=== PATIENT | female | born 1935 | race Caucasian/White ===

== ENCOUNTER 2019-02-19 18:01 | Inpatient (IN) | payer OTHER, MEDICARE ==
--- NOTE | 2019-02-19 18:21 | PDOC ---
History of Present Illness - General Chief Complaint: Choking Sensation Stated Complaint: CHOCKING SENSATION Time Seen by Provider: 02/19/19 18:20 History Source: Patient, Family (daughter) Exam Limitations: No Limitations - History of Present Illness Initial Comments: 02/19/19 18:45 83F w/ pmh of HTN, DM, HLD, esophageal stricture presents to [facility] with complaint of sticking sensation in the neck after eating shrimp pasta and calamari at ~16:30 today. Immediately, felt a sticking sensation in her throat w /a constant spitting of saliva and shortness of breath. Recently, underwent an EGD biopsy, balloon dilation on 02/10/19(Dr Lamont Dawkins w/ [facility]) with instructions afterwards to chew her food thoroughly. In the past year, had multiple episodes of choking sensations w/ solid foods. Had a hospitalization in Jun 2018 that required EGD intervention. Denies weight loss. Associated Symptoms: reports: shortness of breath. denies: chest pain, cough, headaches, malaise, nausea/vomiting Past History - Travel Traveled outside of the country in the last 30 days: No Close contact w/someone who was outside of country & ill: No - Past Medical History Allergies/Adverse Reactions: Allergies Allergy/AdvReac Type Severity Reaction Status Date / Time No Known Allergies Allergy Verified 02/19/19 18:36 Home Medications: Ambulatory Orders Unobtainable 02/19/19 - Surgical History Abdominal Surgery: Yes (appendectomy) Orthopedic Surgery: Yes (Right shoulder, b/l knee) - Family Disease History Family Disease History: CA: Mother (pancreatic) - Suicide/Smoking/Psychosocial Hx Smoking History: Never smoked Hx Alcohol Use: Yes (social) Drug/Substance Use Hx: No Review of Systems - Review of Systems Able to Perform ROS?: Yes Is the patient limited Vincentian proficient: No Constitutional: No: Chills, Diaphoresis, Fever, Night Sweats, Weakness, Unintentional Wgt. Loss HEENTM: No: Eye Pain, Blurred Vision Respiratory: Yes: Shortness of Breath. No: Cough, Stridor, Wheezing, Productive cough Cardiac (ROS): No: Chest Pain, Irregular Heart Rate, Palpitations, Syncope ABD/GI: Yes: Vomiting (spitting up water). No: Abdominal Distended, Abd. Pain w / defecation, Constipated, Diarrhea, Nausea, Poor Appetite : No: Dysuria, Hematuria, Incontinence Musculoskeletal: No: Symptoms Reported Neurological: No: Headache, Numbness, Tremors *Physical Exam - Vital Signs Last Vital Signs Temp Pulse Resp BP Pulse Ox 98.0 F 81 18 164/67 98 02/19/19 18:17 02/19/19 18:17 02/19/19 18:17 02/19/19 18:17 02/19/19 18:17 - Physical Exam General Appearance: Yes: Mild Distress (improved after glucagon), Obese HEENT: positive: Other (actively spitting saliva). negative: Pale Conjunctivae , Scleral Icterus (R), Scleral Icterus (L) Neck: negative: Tender, Trachea midline, Lymphadenopathy (R), Lymphadenopathy (L ) Respiratory/Chest: positive: Lungs Clear, Normal Breath Sounds. negative: Respiratory Distress, Crackles, Rales, Stridor, Wheezing Cardiovascular: positive: Regular Rhythm, Regular Rate, S1, S2 Gastrointestinal/Abdominal: positive: Soft. negative: Guarding, Rebound, Tenderness, Hernia Extremity: negative: Coldness, Cyanosis Integumentary: positive: Dry, Warm Neurologic: positive: Alert. negative: Confused ED Treatment Course - LABORATORY CBC & Chemistry Diagram: 02/19/19 18:45 02/19/19 18:45 Medical Decision Making - Medical Decision Making 02/19/19 19:15 - fu CBC, CMP - fu EKG - administer Glucagon 1mg IV -- reassess at ~19:30 02/19/19 20:48 - administer Glucagon 2mg IV - GI consult(Dr Downs) -- recommended NPO, EGD tonight *DC/Admit/Observation/Transfer Diagnosis at time of Disposition: Esophageal foreign body Qualifiers: Encounter type: initial encounter Qualified Code(s): T18.108A - Unspecified foreign body in esophagus causing other injury, initial encounter - Discharge Dispostion Condition at time of disposition: Stable Decision to Admit order: Yes - Referrals - Patient Instructions - Post Discharge Activity
[2019-02-19] MEDS ORDERED: GLUCAGON 1 MG KIT IVPUSH ONE ×3 (18:42→19:47)
[2019-02-19] MEDS ORDERED: GlUCAGON HUMAN RECOMBINANT 1 MG/VIAL ONE ×2 (18:59→20:39)
--- NOTE | 2019-02-19 19:12 | PDOC ---
Documentation entered by Xochitl Salinas SCRIBE, acting as scribe for Chicho Ring MD. Chicho Ring MD: This documentation has been prepared by the Brad dow Sammi, SCRIBE, under my direction and personally reviewed by me in its entirety. I confirm that the documentation accurately reflects all work, treatment, procedures, and medical decision making performed by me. Attending Attestation - Resident Resident Name: Tyrone Gatica - ED Attending Attestation I have performed the following: I have examined & evaluated the patient, The case was reviewed & discussed with the resident, I agree w/resident's findings & plan, Exceptions are as noted - HPI HPI: 02/19/19 19:06 The patient is an 83 year old female, with a significant PMH of acid reflux, DM , HTN, HLD, recent esophageal balloon dilation ~ 2 weeks ago, who presents for evaluation of inability to tolerate PO since about 4:30pm. The patient states she was eating bread and calamari and soon after had the sensation of food stuck in her throat with associated SOB and increased saliva production. Denies chest pain. She denies any symptoms prior to her meal. Daughter at bedside notes the patient experienced a similar episode back in June which required an endoscopy. The patient was then advised to receive esophageal balloon treatments for a stricter. PCP: Mayela Abrams GI: [facility] - Physicial Exam PE: 02/19/19 19:12 GENERAL: The patient is awake, alert, and fully oriented, Nontoxic - in no acute distress. HEAD: Normocephalic, atraumatic. EYES: extraocular movements intact, sclera anicteric, conjunctiva clear. ENT: Normal voice, Moist mucous membranes. occasional spitting up saliva NECK: Normal range of motion, supple, LUNGS: Breath sounds equal, clear to auscultation bilaterally. No wheezes, no rhonchi, no rales. HEART: Regular rate and rhythm, normal S1 and S2 without murmur, rub or gallop. ABDOMEN: Soft, nontender, No guarding, no rebound. NEUROLOGICAL: No facial assymetry, Normal speech, PSYCH: Normal mood, normal affect. SKIN: Warm, Dry, normal turgor, - Medical Decision Making 02/19/19 18:37 83y F hx of dm, htn, hl, hx of esohageal balloon dilation sp biopsy presenst with inability to tolerate PO intake/secretions. Pt was eating dinner and felt somtehing sticking in her throat after swallowing a peice of calamari. Pt unable to tolerate any oral intake since then and has been spitting silava. pt was rosmery kern prior to eating. will start gluocagon if does not work will dw GI 02/19/19 20:51 no significan timproovement with glucogon will admit for endoscopy case dw dr. miller, GI Heart Score/ECG Review - ECG Impressions Comment:: 02/19/19 19:14 Twelve-lead EKG was performed and reviewed by me. There is normal sinus rhythm with a normal rate. rate of 86 The axis is normal. The intervals are normal. There is normal R wave progression There are no ST or T wave abnormalities.
[2019-02-19 19:14] LABS: BASO % 0.9 % (0-2.0); EOS % 1.7 % (0-4.5); HEMATOCRIT 38.2 % (32.4-45.2); HEMOGLOBIN 12.7 GM/dL (10.7-15.3); LYMPH % 13.8 % (8-40); MCH 30.3 pg (25.7-33.7); MCHC 33.1 g/dl (32.0-36.0); MEAN CELL VOLUME 91.3 fl (80-96); MEAN PLT VOLUME 9.5 fl (7.5-11.1); MONO % 6.8 % (3.8-10.2); NEUT % 76.8 % (42.8-82.8); PLATELET COUNT 212 K/MM3 (134-434); RBC 4.18 M/mm3 (3.60-5.2); RDW 13.7 % (11.6-15.6); WHITE BLOOD COUNT 11.2 K/mm3 (4.0-10.0)
[2019-02-19] MEDS ORDERED: ONDANSETRON 4 MG/2 ML VIAL IVPUSH ONE (19:19)
[2019-02-19 19:22] LABS: INR 0.99 (0.83-1.09); PROTHROMBIN TIME (PATIENT) 11.7 SEC (9.7-13.0)
[2019-02-19] MEDS ORDERED: ONDANSETRON 4 MG/2 ML VIAL ONE (19:22)
[2019-02-19 19:36] LABS: BILIRUBIN,TOTAL 0.5 mg/dL (0.2-1); BLOOD UREA NITROGEN 25.4 mg/dL (7-18); CALCIUM 9.4 mg/dL (8.5-10.1); CREATININE 1.1 mg/dL (0.55-1.3); POTASSIUM 4.9 mmol/L (3.5-5.1); TOT PROT 7.3 g/dl (6.4-8.2)
[2019-02-19] MEDS ORDERED: SODIUM CHLORIDE 0.9% 500 ML INFUS.BAG IV ONE (20:52)
[2019-02-19] MEDS ORDERED: ONDANSETRON 4 MG/2 ML VIAL IVPUSH PRN (22:56)
[2019-02-19] MEDS ORDERED: PROMETHAZINE HCL 25 MG/1 ML VIAL IVPUSH PRN (22:56)
[2019-02-19] MEDS ORDERED: LACTATED RINGERS SOLUTION 1,000 ML IV SCH (23:00)
--- NOTE | 2019-02-19 23:03 | PN ---
Teaching Attending Note Name of Resident: Ilda Ramírez ATTENDING PHYSICIAN STATEMENT I saw and evaluated the patient. I reviewed the resident's note and discussed the case with the resident. I agree with the resident's findings and plan as documented. SUBJECTIVE: Patient is an 83 year old woman with PMH of HTN, NIDDM, HLD and Esophageal stricture who presents to the ER with complaint of sticking sensation in the neck after eating shrimp pasta and calamari at about 16:30 today. Immediately felt a sticking sensation in her throat with associated constant spitting of saliva and shortness of breath. Recently, underwent an EGD biopsy, balloon dilation on 02/10/19 (Dr Lamont Dawkins at [facility]) with instructions afterwards to chew her food thoroughly. In the past year, had multiple episodes of choking sensations with solid food. Had a hospitalization in Jun 2018 that required EGD intervention. Denies recent weight loss, chest pain, cough, headaches, malaise, nausea or vomiting. OBJECTIVE: Alert Vital Signs Period Temp Pulse Resp BP Sys/Sal Pulse Ox Last 24 Hr 98.0 F-98.2 F 68-81 18-19 156-164/64-67 98-99 HEENT: No Jaundice, eye redness or discharge, PERRLA, EOMI. Normocephalic, atraumatic. External ears are normal and hearing is grossly intact. No nasal discharge. Neck: Supple, nontender. No palpable adenopathy or thyromegaly. No JVD Chest: Good effort. Clear to auscultation and percussion. Heart: Regular. No S3, rub or murmur Abdomen: Not distended, soft, nontender and no HSM. No rebound or guarding. Normal bowel sounds. Ext: Peripheral pulses intact. No leg edema. Skin: Warm and dry. No petechiae, rash or ecchymosis. Neuro: Alert. Oriented x3. CN 2-12 grossly intact. Sensation grossly intact in all four extremities and DTR are symmetric. Psych: Appropriate mood and affect. Good insight. Current Medications Generic Name Dose Route Start Last Admin Trade Name Freq PRN Reason Stop Dose Admin Fentanyl 50 mcg 02/19/19 22:56 Sublimaze Injection - IVPUSH [id number] PRN PAIN-PACU ORDER X 4 DOSES ONLY Lactated Ringer's 1,000 mls @ 125 mls/hr 02/19/19 23:00 Lactated Ringers Solution IV ASDIR BILL Ondansetron HCl 4 mg 02/19/19 22:56 Zofran Injection IVPUSH Q6H PRN NAUSEA AND/OR VOMITING Promethazine HCl 12.5 mg 02/19/19 22:56 Phenergan Injection - IVPUSH Q6H PRN NAUSEA-FOR RESCUE AFTER 15 MIN Home Medications Medication Instructions Recorded Unobtainable 02/19/19 Abnormal Lab Results 02/19/19 02/19/19 18:45 18:45 WBC 11.2 H Absolute Neuts (auto) 8.6 H Chloride 108 H BUN 25.4 H Random Glucose 182 H ASSESSMENT AND PLAN: 1. Esophageal food impaction - Not in acute respiratory distress. GI consulted and scheduled for EGD tonight. Got IV glucagon, zofran and IV NS in the ER. Being kept NPO. 2. Uncontrolled DM For now, we will hold the home diabetes drugs and implement sliding scale insulin regimen. Provide comprehensive diabetes care with patient teaching and counseling about the importance of adherence to prescribed diabetes regimen, euglycemia, eye care and foot care. 3. Obesity Counseled on the risks associated with obesity. Will provide patient all the necessary assistance, counseling and positive reinforcement to facilitate weight loss. Consult healthcare architect. 4. Hypertension - Restart suitable outpatient antihypertensive drugs when clinically appropriate. Revise regimen to ensure [id number] excellent BP control and industrial relations counselor patient on the injurious effects of uncontrolled hypertension. Nonpharmacologic measures to control hypertension like weight loss , salt restriction and exercise discussed. Importance of adherence to treatment regimen and attainment of normotension emphasized. 5. DVT prophylaxis - SCD, Early ambulation - Withhold heparin until after EGD. 6. Advance directives - Full code
--- NOTE | 2019-02-20 00:21 | HP ---
CHIEF COMPLAINT: difficulty swallowing PCP: Dr. Robert Abrams HISTORY OF PRESENT ILLNESS: 83 y/o F, pmh of HTN, DM, HLD, GERD, esophageal strictures s/p EGD balloon dilation and biopsy (02/10/19), presents to the ED c/o of difficulty swallowing solids and liquids of few hour duration since her last meal, associated with a copious amount of vomitus composed of saliva. Pt reports that she was at a restaurant eating seafood, during which her symptoms began with inability to swallow food, which she believes was stuck in her throat. Nothing seems to improve the symptoms but drinking water worsens it. She has had previous hx of similar symptoms for which she had EGD dilation and biopsy, most recent being one week ago at [facility] by Dr. Lamont Dawkins. She reports her symptoms had improved in the ED till she had drank some water, which brought on her symptoms again. Denies fevers, chills, headaches, numbness, tingling, diarrhea, abdominal pain, urinary incontinence. ER course was notable for: (1) Glucagon given (2) Zofran given (3) Recent Travel: denies PAST MEDICAL HISTORY: HTN, DM, HLD, GERD, esophageal strictures s/p EGD balloon dilation and biopsy (), EGD in june 2018 PAST SURGICAL HISTORY: denies Social History: Smoking: denies Alcohol: denies Drugs: denies Family History: Mother- cancer of the stomach- in 3 months of dx Allergies No Known Allergies Allergy (Verified 02/19/19 18:36) HOME MEDICATIONS: Home Medications Medication Instructions Recorded Unobtainable 02/19/19 REVIEW OF SYSTEMS CONSTITUTIONAL: Absent: fever, chills, diaphoresis, generalized weakness, malaise, weight change HEENT: Absent: eye pain, visual changes CARDIOVASCULAR: Absent: chest pain, syncope, palpitations, lightheadedness, peripheral edema RESPIRATORY: Admits: cough, spitting up saliva Absent: shortness of breath, dyspnea with exertion, orthopnea, wheezing, stridor , hemoptysis GASTROINTESTINAL: Admits: nausea, vomiting, dysphagia Absent: abdominal pain, abdominal distension, diarrhea, constipation, melena, hematochezia GENITOURINARY: Absent: dysuria, hematuria, flank pain, genital pain MUSCULOSKELETAL: Absent: myalgia, arthralgia, back pain, neck pain HEMATOLOGIC/IMMUNOLOGIC: Absent: lymphadenopathy, frequent infections ENDOCRINE: Absent: unexplained weight gain/loss NEUROLOGIC: Absent: headache, dizziness, unsteady gait, seizure, mental status changes, bladder or bowel incontinence PSYCHIATRIC: Absent: anxiety PHYSICAL EXAMINATION Vital Signs - 24 hr Last Vital Signs Temp Pulse Resp BP Pulse Ox 98.4 F 77 18 146/64 98 02/20/19 06:00 02/20/19 06:00 02/20/19 01:58 02/20/19 06:00 02/20/19 01:58 GENERAL: Awake, alert, and fully oriented, in no acute distress. EYES: Pupils equal, round and reactive to light, extraocular movements intact EARS, NOSE, THROAT: oropharynx clear without exudates. Moist mucous membranes. NECK: supple without lymphadenopathy, JVD, or masses, no bruit. Pt regurgitating copious amount of saliva LUNGS: Breath sounds equal, clear to auscultation bilaterally. No wheezes, and no crackles. HEART: Regular rate and rhythm, normal S1 and S2 without murmur, rub or gallop. ABDOMEN: Soft, nontender, not distended, normoactive bowel sounds, no guarding, no rebound, no masses. No hepatomegaly or splenomegaly. MUSCULOSKELETAL: No CVA tenderness. UPPER EXTREMITIES: 2+ pulses, warm, well-perfused. No cyanosis. No peripheral edema. LOWER EXTREMITIES: 2+ pulses, warm, well-perfused. No peripheral edema. PSYCHIATRIC: Cooperative. Good eye contact. Appropriate mood and affect. Laboratory Results - last 24 hr CBC, BMP 02/19/19 18:45 02/19/19 18:45 ASSESSMENT/PLAN: 83 y/o F, pmh of HTN, DM, HLD, GERD, esophageal strictures s/p EGD balloon dilation and biopsy (02/10/19), presents to the ED c/o of difficulty swallowing associated with vomiting, #Dysphagia 2/2 esophageal strictures previous hx of strictures tx w/ EGD EGD done by Dr. Downs- f/u results in the am place pt on aspiration precaution Speech and swallow consulted - f/u in am Pantoprazole Zofran for nausea #Leukocytosis likely reactive at 11.2 trend white count UA ordered- f/u #Elevated BUN patient dehydrated IVF- 1/2 NS at 42 #HTN hold meds for now till after EGD #HLD hold meds s/p EGD #DM BGM- Q6H ISS #DVT ppx Heparin sq FEN: Clear liquids Dispo: f/u EGD results in am, symptomatic management Reconcile meds in am Visit type - Emergency Visit Emergency Visit: Yes ED Registration Date: 02/19/19 Care time: The patient presented to the Emergency Department on the above date and was hospitalized for further evaluation of their emergent condition. - New Patient This patient is new to me today: Yes Date on this admission: 02/20/19 - Critical Care Critical Care patient: No ATTENDING PHYSICIAN STATEMENT I saw and evaluated the patient. I reviewed the resident's note and discussed the case with the resident. I agree with the resident's findings and plan as documented. SUBJECTIVE: OBJECTIVE: ASSESSMENT AND PLAN:
--- NOTE | 2019-02-20 00:25 | PN ---
Progress Note (short form) - Note Progress Note: BRIEF GI PROCEDURE NOTE EGD FINDINGS - FOOD DEBRIS IN THE ESOPHAGUS REMOVED BY ROT NET SCOPE EASILY PASSED INTO THE STOMACH ERYTHEMATOUS GASTROPATHY REC: CLEAR LIQUID DIET ADVANCE TO SOFT DIET IN THE MORNING IF TOLERATES CLEAR LIQUID DIET PPI 40 MG PO QD OUTPT GI F/U FOR FURTHER MANAGEMENT
[2019-02-20] MEDS ORDERED: SODIUM CHLORIDE 0.45% 1,000 ML IV SCH (00:30)
[2019-02-20] MEDS: HEPARIN NA (PORCINE) 5,000 UNITS/ML 1ML VIAL SQ SCH ×3 (01:55→17:00)
[2019-02-20] MEDS: INSULIN SLIDING SCALE (NOVOLOG) 1 VIAL SQ SCH ×4 (06:16→22:10)
[2019-02-20 08:21] LABS: BASO % 0.2 % (0-2.0); HEMATOCRIT 32.1 % (32.4-45.2); HEMOGLOBIN 10.9 GM/dL (10.7-15.3); LYMPH % 14.5 % (8-40); MCH 30.7 pg (25.7-33.7); MCHC 33.9 g/dl (32.0-36.0); MEAN CELL VOLUME 90.4 fl (80-96); MONO % 8.8 % (3.8-10.2); NEUT % 75.5 % (42.8-82.8); PLATELET COUNT 179 K/MM3 (134-434); RBC 3.55 M/mm3 (3.60-5.2); RDW 13.4 % (11.6-15.6); WHITE BLOOD COUNT 12.8 K/mm3 (4.0-10.0)
[2019-02-20 08:40] LABS: ALBUMIN 3.4 g/dl (3.4-5.0); BILIRUBIN,TOTAL 0.5 mg/dL (0.2-1); BLOOD UREA NITROGEN 23.1 mg/dL (7-18); CALCIUM 8.8 mg/dL (8.5-10.1); CREATININE 0.8 mg/dL (0.55-1.3); POTASSIUM 3.8 mmol/L (3.5-5.1); TOT PROT 5.9 g/dl (6.4-8.2)
[2019-02-20] MEDS: PANTOPRAZOLE 40 MG TABLET (FP) PO SCH (09:51)
--- NOTE | 2019-02-20 11:08 | EKG ---
Test Reason : Blood Pressure : / mmHG Vent. Rate : 086 BPM Atrial Rate : 086 BPM P-R Int : 170 ms QRS Dur : 076 ms QT Int : 380 ms P-R-T Axes : 056 041 059 degrees QTc Int : 454 ms NORMAL SINUS RHYTHM POSSIBLE LEFT ATRIAL ENLARGEMENT BORDERLINE ECG NO PREVIOUS ECGS AVAILABLE Confirmed by KVNG SANTANA MD ([id number]) on 02/20/2019 11:08:02 AM Referred By: Confirmed By:KVNG SANTANA MD
--- NOTE | 2019-02-20 12:04 | CONSULT ---
Admitting History and Physical - Primary Care Physician PCP: Rui Gil - Admission History of Present Illness: Per EMR- HISTORY OF PRESENT ILLNESS: 83 y/o F, pmh of HTN, DM, HLD, GERD, esophageal strictures s/p EGD balloon dilation and biopsy (02/10/19), presents to the ED c/o of difficulty swallowing solids and liquids of few hour duration since her last meal, associated with a copious amount of vomitus composed of saliva. Pt reports that she was at a restaurant eating seafood, during which her symptoms began with inability to swallow food, which she believes was stuck in her throat. Nothing seems to improve the symptoms but drinking water worsens it. She has had previous hx of similar symptoms for which she had EGD dilation and biopsy, most recent being one week ago at [facility] by Dr. Lamont Dawkins. GI PROCEDURE NOTE EGD FINDINGS - FOOD DEBRIS IN THE ESOPHAGUS REMOVED BY ROT NET SCOPE EASILY PASSED INTO THE STOMACH ERYTHEMATOUS GASTROPATHY Pt reports having difficulty intermittently with solids for years, first time in her 40's with food getting stuck. She does not think she had an esophagram or motility studies. She recently had a dilatation. She reports this time she thought she "would , with liquid coming up and not able to speak or breath." Soft diet ordered, but downgraded to clear liquid per nursing, pending swallowing evaluation. History Source: Patient, Family Member Limitations to Obtaining History: No Limitations - Past Medical History ...: No - Smoking History Smoking history: Never smoked - Alcohol/Substance Use Hx Alcohol Use: Yes (social) History - Admission Reason For Visit: FOREIGN BODY IN ESOPHAGUS - General Mental Status: Alert and Oriented, Awake and Alert, Able to Follow Commands Attention: Intact Ability to Follow Directions: Excellent Head/Neck Control: WFL - Hearing Hearing: Impaired, Both Hearing Aide: No With Patient: No Speech Evaluation - Communication Primary Language: AMHARIC Communication: Yes: Within Normal Limits Oral Expression Ability: Yes: No Impairment - Speech Production Able to Make Needs Known: Yes: WNL Intelligibility: Yes: Mildly Impaired - Speech Characteristics Voice Loudness: Mildly Soft/Quiet Voice Pitch: Yes: Normal Voice Phonatory-based Quality: Yes: Dysphonia (mild) Speech Clarity: < 100% Nasal Resonance: Normal Articulation: Yes: Precise - Language/Auditory Comprehension Follows: Yes: 2 Stage Simple Commands - Language/Verbal Expression Able to Respond to Simple Queries: Yes: WNL Able to Communicate Wants and Needs: Yes: WNL Functional Communication Status: Yes: WNL - Memory/Perception roasterman Memory: Yes: WNL Short Term Memory: Yes: WNL - Swallow Evaluation/Bedside Assessment Current Nutritional Intake: Clear Liquids Dentition: Yes: Adequate Facial Symmetry at Rest: Symmetrical Facial Symmetry on Retraction: Symmetrical Against Resistance Opening: Normal Against Resistance Closing: Normal Pucker Lips: Normal Smile: Normal Lingual Movement: Normal, Symmetric Lingual Speed of Movement: Normal Lingual Movement Strgth Against Opposition: Normal Lingual Movement Characteristics: Normal Velopharyngeal Movement: Normal Laryngeal Elevation: WFL Laryngeal Movement: Able to Palpate Rate of Intake: WFL Bolus Size: WFL Labial Seal: WFL Chewing: WFL Oral Prep Time: WFL A-P Transit: WFL Pocketing: None Timing of Swallow: WFL Coughing/Throat Clear: No Change in Voice: No Recommendations - Speech Evaluation, Impression/Plan Impression: 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 Recent dilatation. Admitted with food impaction. Pt sounds congested. She has a cough. r/o Achalasia, dysmotility, stricture,other dx's that can affect esophageal function including Sjogren's.etc. Followed by GI. - Dysphagia Impressions/Plan Swallowing Skills: Impaired Dysphagia Impressions: Ongoing Evaluation *Silent aspiration: cannot be R/O at bedside Dysphagia Treatment Plan: OOB for meals, OOB for 1 h. after meals Recommendations: GI Consult (f/u), MBS w Esophagus, Other (cough, WBC elevated. Consider CXR.) - Recommendations Diet Consistency: Other (clear liquids) Liquids: Thin Liquids
--- NOTE | 2019-02-20 12:49 | CONS ---
DATE OF CONSULTATION: 02/19/2019 The patient is an 83-year-old female with a past medical history of hypertension, diabetes, hyperlipidemia, recent upper endoscopy on the at [facility] for apparent stricture, at which time had balloon dilation. She now presents to the hospital with the sensation of food sticking in her throat. Earlier in the day she had pasta with seafood and immediately felt the sensation of food being stuck in her throat, not being able to tolerate p.o. intake or saliva. She becomes anxious and has difficulty breathing when this occurs. Apparently in the past year she has had multiple episodes of choking sensations with solid food and was hospitalized in 2018 and required an EGD at that time also. She denies any reflux symptoms, abdominal pain, diarrhea, blood in the stool, weight loss, fevers, or chills. PAST MEDICAL AND SURGICAL HISTORY: As listed in the HPI. Additional surgical history of appendectomy, right shoulder, and bilateral knee surgeries. ALLERGIES: No known drug allergies. HOME MEDICATIONS: Reviewed. FAMILY HISTORY: Significant for pancreatic cancer. SOCIAL HISTORY: Drinks occasionally and does not smoke or use drugs. REVIEW OF SYSTEMS: As per the HPI. PHYSICAL EXAMINATION: Vital Signs: Temperature 98, pulse 68, blood pressure 156/64, respiratory rate 12, saturations are 99% on room air. General: No acute distress. HEENT: Anicteric sclerae. Cardiovascular: S1, S2. Regular rate and rhythm. Lungs: Bilaterally clear to auscultation. Abdomen: Soft, nontender. Extremities: No edema. LABORATORY: White blood cell count is 11.2, hemoglobin 12, hematocrit 38, MCV 91, platelet count 212. INR 0.99, sodium 141, potassium 4.9, BUN 25, creatinine 1, total bilirubin 0.5. AST 38, ALT 23, alkaline phosphatase 83. IMPRESSION: Dysphagia, cannot exclude food impaction. RECOMMENDATION: N.P.O., IV fluids. Plan for urgent endoscopy this evening. DO ELLA HOLCOMB/[id number]
[2019-02-20 15:37] LABS: URINE APPEARANCE CLOUDY; URINE BILIRUBIN NEGATIVE (NEGATIVE); URINE COLOR YELLOW; URINE GLUCOSE (UA) NEGATIVE (NEGATIVE); URINE KETONE NEGATIVE (NEGATIVE); URINE LEUK ESTERASE 1+ (NEGATIVE); URINE NITRITE NEGATIVE (NEGATIVE); URINE PROTEIN NEGATIVE (NEGATIVE); URINE UROBILINOGEN 0.2 mg/dL (0.2-1.0)
--- NOTE | 2019-02-20 16:32 | PN ---
Physical Exam: SUBJECTIVE: Patient seen and examined by the bedside, AOx3 OBJECTIVE: Vital Signs Period Temp Pulse Resp BP Sys/Sal Pulse Ox Last 24 Hr 97.7 F-98.7 F 68-81 14-20 129-168/54-78 95-100 GENERAL: The patient is awake, alert, and fully oriented, in no acute distress. HEAD: Normal with no signs of trauma. EYES: PERRL, extraocular movements intact, sclera anicteric, conjunctiva clear. No ptosis. ENT: Ears normal, nares patent, oropharynx clear without exudates, moist mucous membranes. NECK: Trachea midline, full range of motion, supple. LUNGS: Decreased breath sounds B/L HEART: Regular rate and rhythm, S1, S2 without murmur, rub or gallop. ABDOMEN: Soft, nontender, nondistended, normoactive bowel sounds, no guarding, no rebound, no hepatosplenomegaly, no masses. EXTREMITIES: 2+ pulses, warm, well-perfused, no edema. NEUROLOGICAL: Cranial nerves II through XII grossly intact. Normal speech, gait not observed. PSYCH: Normal mood, normal affect. SKIN: Warm, dry, normal turgor, no rashes or lesions noted Laboratory Results - last 24 hr 02/19/19 02/19/19 02/19/19 07:40 18:45 18:45 WBC 11.2 H RBC 4.18 Hgb 12.7 Hct 38.2 MCV 91.3 MCH 30.3 MCHC 33.1 RDW 13.7 Plt Count 212 MPV 9.5 Absolute Neuts (auto) 8.6 H Neutrophils % 76.8 Lymphocytes % 13.8 Monocytes % 6.8 Eosinophils % 1.7 Basophils % 0.9 Nucleated RBC % 0 PT with INR INR Sodium 141 Potassium 4.9 Chloride 108 H Carbon Dioxide 23 Anion Gap 9 BUN 25.4 H Creatinine 1.1 Est GFR (CKD-EPI)AfAm 54.53 Est GFR (CKD-EPI)NonAf 47.05 POC Glucometer Random Glucose 182 H Calcium 9.4 Total Bilirubin 0.5 AST 30 ALT 23 Alkaline Phosphatase 83 Total Protein 7.3 Albumin 4.0 Urine Color Urine Appearance Urine pH Ur Specific [place] Urine Protein Urine Glucose (UA) Urine Ketones Urine Blood Urine Nitrite Urine Bilirubin Urine Urobilinogen Ur Leukocyte Esterase Blood Type A POSITIVE Antibody Screen 0802/19/19 02/20/19 18:45 18:45 05:45 WBC RBC Hgb Hct MCV MCH MCHC RDW Plt Count MPV Absolute Neuts (auto) Neutrophils % Lymphocytes % Monocytes % Eosinophils % Basophils % Nucleated RBC % PT with INR 11.70 INR 0.99 Sodium Potassium Chloride Carbon Dioxide Anion Gap BUN Creatinine Est GFR (CKD-EPI)AfAm Est GFR (CKD-EPI)NonAf POC Glucometer 116 Random Glucose Calcium Total Bilirubin AST ALT Alkaline Phosphatase Total Protein Albumin Urine Color Urine Appearance Urine pH Ur Specific [place] Urine Protein Urine Glucose (UA) Urine Ketones Urine Blood Urine Nitrite Urine Bilirubin Urine Urobilinogen Ur Leukocyte Esterase Blood Type A POSITIVE Antibody Screen Negative 02/20/19 02/20/19 02/20/19 07:40 07:40 11:18 WBC 12.8 H RBC 3.55 L Hgb 10.9 Hct 32.1 L D MCV 90.4 MCH 30.7 MCHC 33.9 RDW 13.4 Plt Count 179 MPV 9.0 Absolute Neuts (auto) 9.6 H Neutrophils % 75.5 Lymphocytes % 14.5 Monocytes % 8.8 Eosinophils % 1.0 Basophils % 0.2 Nucleated RBC % 0 PT with INR INR Sodium 144 Potassium 3.8 Chloride 112 H Carbon Dioxide 24 Anion Gap 8 BUN 23.1 H Creatinine 0.8 Est GFR (CKD-EPI)AfAm 80.14 Est GFR (CKD-EPI)NonAf 69.14 POC Glucometer 150 Random Glucose 94 Calcium 8.8 Total Bilirubin 0.5 AST 18 ALT 18 Alkaline Phosphatase 69 Total Protein 5.9 L Albumin 3.4 Urine Color Urine Appearance Urine pH Ur Specific [place] Urine Protein Urine Glucose (UA) Urine Ketones Urine Blood Urine Nitrite Urine Bilirubin Urine Urobilinogen Ur Leukocyte Esterase Blood Type Antibody Screen 02/20/19 14:05 WBC RBC Hgb Hct MCV MCH MCHC RDW Plt Count MPV Absolute Neuts (auto) Neutrophils % Lymphocytes % Monocytes % Eosinophils % Basophils % Nucleated RBC % PT with INR INR Sodium Potassium Chloride Carbon Dioxide Anion Gap BUN Creatinine Est GFR (CKD-EPI)AfAm Est GFR (CKD-EPI)NonAf POC Glucometer Random Glucose Calcium Total Bilirubin AST ALT Alkaline Phosphatase Total Protein Albumin Urine Color Yellow Urine Appearance Cloudy Urine pH 5.0 Ur Specific [place] 1.006 L Urine Protein Negative Urine Glucose (UA) Negative Urine Ketones Negative Urine Blood Negative Urine Nitrite Negative Urine Bilirubin Negative Urine Urobilinogen 0.2 Ur Leukocyte Esterase 1+ H Blood Type Antibody Screen Active Medications Generic Name Dose Route Start Last Admin Trade Name Reta PRN Reason Stop Dose Admin Fentanyl 50 mcg 02/19/19 22:56 Sublimaze Injection - IVPUSH [id number] PRN PAIN-PACU ORDER X 4 DOSES ONLY Heparin Sodium (Porcine) 5,000 unit 02/20/19 02:00 02/20/19 09:51 Heparin - SQ 5,000 unit Q8H-IV BILL Administration Insulin Aspart 0 vial 02/20/19 07:00 02/20/19 11:18 Novolog Vial Sliding Scale - SQ Not Given ACHS [facility] Protocol Ondansetron HCl 4 mg 02/19/19 22:56 Zofran Injection IVPUSH Q6H PRN NAUSEA AND/OR VOMITING Pantoprazole Sodium 40 mg 02/20/19 10:00 02/20/19 09:51 Protonix - PO 40 mg DAILY BILL Administration Promethazine HCl 12.5 mg 02/19/19 22:56 Phenergan Injection - IVPUSH Q6H PRN NAUSEA-FOR RESCUE AFTER 15 MIN ASSESSMENT/PLAN: 83 YO F with PMH significant for esophageal strictures (EGD balloon dilation & biopsy 02/10), HTN, DM, HLD, GERD. Presented to the ER with dysphagia to solids and liquids, associated with vomiting which began after a meal. EGD was performed and food debris removed. #Dysphagia 2/2 esophageal strictures - EGD done by Dr. Downs, food debris removes, erythematous gastropathy / advance diet to soft when tolerating clear liquid diet/ outpatient FU - Modified barium swallow: No evidence of aspiration - Speech and swallow consultation: Puree diet, think liquids - Protonix 40mg, Zofran - Aspiration precaution #Leukocytosis - 11.2 -> 12.8 - UA: LE 1+ #Elevated BUN - Follow BUN 25.4 -> 23.1 #HTN - Cont home meds: Ramipril 5mg #HLD - Cont home meds: Rosuvastatin 20mg #Hx of DM - Novolog SS - Hold home meds Glipizide 2.5 mg - BGM Q6H #DVT PE - Heparin SQ #FEN - Puree diet, thin liquids Visit type - Emergency Visit Emergency Visit: Yes ED Registration Date: 02/19/19 Care time: The patient presented to the Emergency Department on the above date and was hospitalized for further evaluation of their emergent condition. - New Patient This patient is new to me today: Yes Date on this admission: 02/20/19 - Critical Care Critical Care patient: No - Discharge Referral Referred to [facility] Med P.C.: No ATTENDING PHYSICIAN STATEMENT I saw and evaluated the patient. I reviewed the resident's note and discussed the case with the resident. I agree with the resident's findings and plan as documented. SUBJECTIVE: OBJECTIVE: ASSESSMENT AND PLAN:
[2019-02-20 16:41] LABS: EPI CELLS 2.6 /HPF (0-5/HPF); HYALINE CASTS 0.35 /lpf (0-8); URINE BACTERIA 4246.8 /hpf (NEGATIVE); URINE RBC 0.6 /hpf (0-4); URINE WBC 14.2 /hpf (0-5)
--- NOTE | 2019-02-20 16:46 | PN ---
Teaching Attending Note Name of Resident: Corona Beavers ATTENDING PHYSICIAN STATEMENT I saw and evaluated the patient. I reviewed the resident's note and discussed the case with the resident. I agree with the resident's findings and plan as documented. SUBJECTIVE: Patient tolerating clear liquids, but has cough this morning. OBJECTIVE: Vital Signs Period Temp Pulse Resp BP Sys/Sal Pulse Ox Last 24 Hr 97.7 F-98.7 F 68-81 14-20 129-168/54-78 95-100 HEART: S1S2, RRR LUNGS: Few rhonchi bilaterally ABDOMEN: Soft, non-tender, non-distended, normal BS EXTREMITIES: No edema Laboratory Results - last 24 hr 02/19/19 02/19/19 02/19/19 07:40 18:45 18:45 WBC 11.2 H RBC 4.18 Hgb 12.7 Hct 38.2 MCV 91.3 MCH 30.3 MCHC 33.1 RDW 13.7 Plt Count 212 MPV 9.5 Absolute Neuts (auto) 8.6 H Neutrophils % 76.8 Lymphocytes % 13.8 Monocytes % 6.8 Eosinophils % 1.7 Basophils % 0.9 Nucleated RBC % 0 PT with INR INR Sodium 141 Potassium 4.9 Chloride 108 H Carbon Dioxide 23 Anion Gap 9 BUN 25.4 H Creatinine 1.1 Est GFR (CKD-EPI)AfAm 54.53 Est GFR (CKD-EPI)NonAf 47.05 POC Glucometer Random Glucose 182 H Calcium 9.4 Total Bilirubin 0.5 AST 30 ALT 23 Alkaline Phosphatase 83 Total Protein 7.3 Albumin 4.0 Urine Color Urine Appearance Urine pH Ur Specific [place] Urine Protein Urine Glucose (UA) Urine Ketones Urine Blood Urine Nitrite Urine Bilirubin Urine Urobilinogen Ur Leukocyte Esterase Blood Type A POSITIVE Antibody Screen 02/19/19 02/19/19 02/20/19 18:45 18:45 05:45 WBC RBC Hgb Hct MCV MCH MCHC RDW Plt Count MPV Absolute Neuts (auto) Neutrophils % Lymphocytes % Monocytes % Eosinophils % Basophils % Nucleated RBC % PT with INR 11.70 INR 0.99 Sodium Potassium Chloride Carbon Dioxide Anion Gap BUN Creatinine Est GFR (CKD-EPI)AfAm Est GFR (CKD-EPI)NonAf POC Glucometer 116 Random Glucose Calcium Total Bilirubin AST ALT Alkaline Phosphatase Total Protein Albumin Urine Color Urine Appearance Urine pH Ur Specific [place] Urine Protein Urine Glucose (UA) Urine Ketones Urine Blood Urine Nitrite Urine Bilirubin Urine Urobilinogen Ur Leukocyte Esterase Blood Type A POSITIVE Antibody Screen Negative 02/20/19 02/20/19 02/20/19 07:40 07:40 11:18 WBC 12.8 H RBC 3.55 L Hgb 10.9 Hct 32.1 L D MCV 90.4 MCH 30.7 MCHC 33.9 RDW 13.4 Plt Count 179 MPV 9.0 Absolute Neuts (auto) 9.6 H Neutrophils % 75.5 Lymphocytes % 14.5 Monocytes % 8.8 Eosinophils % 1.0 Basophils % 0.2 Nucleated RBC % 0 PT with INR INR Sodium 144 Potassium 3.8 Chloride 112 H Carbon Dioxide 24 Anion Gap 8 BUN 23.1 H Creatinine 0.8 Est GFR (CKD-EPI)AfAm 80.14 Est GFR (CKD-EPI)NonAf 69.14 POC Glucometer 150 Random Glucose 94 Calcium 8.8 Total Bilirubin 0.5 AST 18 ALT 18 Alkaline Phosphatase 69 Total Protein 5.9 L Albumin 3.4 Urine Color Urine Appearance Urine pH Ur Specific [place] Urine Protein Urine Glucose (UA) Urine Ketones Urine Blood Urine Nitrite Urine Bilirubin Urine Urobilinogen Ur Leukocyte Esterase Blood Type Antibody Screen 02/20/19 14:05 WBC RBC Hgb Hct MCV MCH MCHC RDW Plt Count MPV Absolute Neuts (auto) Neutrophils % Lymphocytes % Monocytes % Eosinophils % Basophils % Nucleated RBC % PT with INR INR Sodium Potassium Chloride Carbon Dioxide Anion Gap BUN Creatinine Est GFR (CKD-EPI)AfAm Est GFR (CKD-EPI)NonAf POC Glucometer Random Glucose Calcium Total Bilirubin AST ALT Alkaline Phosphatase Total Protein Albumin Urine Color Yellow Urine Appearance Cloudy Urine pH 5.0 Ur Specific [place] 1.006 L Urine Protein Negative Urine Glucose (UA) Negative Urine Ketones Negative Urine Blood Negative Urine Nitrite Negative Urine Bilirubin Negative Urine Urobilinogen 0.2 Ur Leukocyte Esterase 1+ H Blood Type Antibody Screen Current Medications Generic Name Dose Route Start Last Admin Trade Name Freq PRN Reason Stop Dose Admin Fentanyl 50 mcg 02/19/19 22:56 Sublimaze Injection - IVPUSH [id number] PRN PAIN-PACU ORDER X 4 DOSES ONLY Heparin Sodium (Porcine) 5,000 unit 02/20/19 02:00 02/20/19 09:51 Heparin - SQ 5,000 unit Q8H-IV BILL Administration Insulin Aspart 0 vial 02/20/19 07:00 02/20/19 11:18 Novolog Vial Sliding Scale - SQ Not Given ACHS [facility] Protocol Ondansetron HCl 4 mg 02/19/19 22:56 Zofran Injection IVPUSH Q6H PRN NAUSEA AND/OR VOMITING Pantoprazole Sodium 40 mg 02/20/19 10:00 02/20/19 09:51 Protonix - PO 40 mg DAILY BILL Administration Promethazine HCl 12.5 mg 02/19/19 22:56 Phenergan Injection - IVPUSH Q6H PRN NAUSEA-FOR RESCUE AFTER 15 MIN ASSESSMENT AND PLAN: This is an 83 year old woman with a history of HTN, hyperlipidemia, type 2 DM, GERD, esophageal stricture with balloon dilation who presented to the ED with difficulty swallowing. 1. Food impaction secondary to esophageal stricture - EGD done, food debris removed from esophagus. Erythematous gastropathy found in stomach - Swallow evaluation noted - Modified barium swallow shows no evidence of aspiration - Continue Protonix - Diet advanced from clear liquids to pureed with thin liquids 2. Leukocytosis - Likely reactive 3. Dehydration - BUN improving - IV fluid discontinued - Encourage oral fluid intake 4. HTN - Restart ramipril 5. Hyperlipidemia - Restart Crestor 6. Type 2 DM - Glipizide, metformin held - Continue Novolog sliding scale
[2019-02-20] MEDS: RAMIPRIL 5 MG CAPSULE (FP) PO SCH (17:00)
[2019-02-20] MEDS: ASPIRIN 81 MG CHEWABLE TABLETS PO SCH (17:00)
[2019-02-20] MEDS ORDERED: diphenhydrAMINE HCL 25 MG CAPSULE (FP) PO ONE (19:24)
[2019-02-20] MEDS ORDERED: INSULIN (NOVOLOG) ASPART 100 UNITS/ML 10ML VIAL ONE (21:08)
[2019-02-20] MEDS ORDERED: ROSUVASTATIN CA 20 MG TABLET (FP) PO SCH (22:00)
[2019-02-21] MEDS: HEPARIN NA (PORCINE) 5,000 UNITS/ML 1ML VIAL SQ SCH ×2 (01:53→11:20)
[2019-02-21] MEDS: INSULIN SLIDING SCALE (NOVOLOG) 1 VIAL SQ SCH ×2 (06:24→11:54)
[2019-02-21 08:56] LABS: HEMATOCRIT 32.6 % (32.4-45.2); HEMOGLOBIN 11.1 GM/dL (10.7-15.3); MCH 30.8 pg (25.7-33.7); MEAN CELL VOLUME 90.5 fl (80-96); MEAN PLT VOLUME 9.2 fl (7.5-11.1); PLATELET COUNT 178 K/MM3 (134-434); RDW 13.4 % (11.6-15.6); WHITE BLOOD COUNT 7.4 K/mm3 (4.0-10.0)
[2019-02-21 09:00] LABS: BLOOD UREA NITROGEN 16.8 mg/dL (7-18); CALCIUM 8.9 mg/dL (8.5-10.1); CREATININE 0.8 mg/dL (0.55-1.3); POTASSIUM 4.2 mmol/L (3.5-5.1)
[2019-02-21] MEDS ORDERED: PT OWN MED DRAWER 7, Y5N ONE (11:15)
[2019-02-21] MEDS: PANTOPRAZOLE 40 MG TABLET (FP) PO SCH (11:19)
[2019-02-21] MEDS: RAMIPRIL 5 MG CAPSULE (FP) PO SCH (11:19)
[2019-02-21] MEDS: ASPIRIN 81 MG CHEWABLE TABLETS PO SCH (11:20)
--- NOTE | 2019-02-21 11:38 | PN ---
Progress Note, GROUND SUPPORT EQUIPMENT MECHANIC - Note Progress Note: MBS results reviewed again with pt, as well as medical team/nursing. Pt would like her diet upgraded from puree, which I can understand. I reviewed with her that she had been dilated but then obstructed on [place] bread and fish. It only takes 1 larger solid bite to obstruct. We discussed that soft mushy/chopped foods, chewed well, alternating with sips of thin liquid should be tolerated. Pending GI follow up regarding mgmt. Suggest diet upgrade to Dys chopped/thin liquid. Allow Tuna,egg salad, cold and hot cereal, mashed ripe banana. Picture of water on tray. RD to f/u
[2019-02-21 15:16] VITALS: BP 153/73; PULSE 83; TEMP 97.3
--- NOTE | 2019-02-21 15:46 | PATH ---
Surgical Pathology Report Patient Name: LILLIAN BENTLEY Med. Rec. #: [id number] /Age/Gender: 1935 (Age: 83) / F Account: [id number] Location: [address] [place] [address]/[facility] Taken: 02/19/2019 Received: 02/20/2019 Reported: 02/21/2019 Physicians: Ilda Downs M.D. Specimen(s) Received FOREIGN BODY IN ESOPHAGUS Clinical History Foreign body in esophagus Final Diagnosis FOREIGN BODY, REMOVAL: FOREIGN BODY, CONSISTENT WITH FOOD. Electronically Signed Simona Esteban M.D. Gross Description Received in formalin labeled "foreign body," is a 4.0 x 4.0 x 2.0 cm aggregate of mclain portions of foreign body, possibly consistent with food. A telemarketing sales representative portion is submitted in one cassette. /02/20/2019 [facility]02/20/2019
--- NOTE | 2019-02-21 15:47 | DS ---
Physical Exam: SUBJECTIVE: Patient seen and examined by the bedside, AOx3, in no acute distress OBJECTIVE: Vital Signs Period Temp Pulse Resp BP Sys/Sal Pulse Ox Last 24 Hr 97.3 F-98.1 F 63-83 18-19 111-153/55-73 98-98 PHYSICAL EXAM GENERAL: The patient is awake, alert, and fully oriented, in no acute distress. HEAD: Normal with no signs of trauma. EYES: PERRL, extraocular movements intact, sclera anicteric, conjunctiva clear. No ptosis. ENT: Ears normal, nares patent, oropharynx clear without exudates, moist mucous membranes. NECK: Trachea midline, full range of motion, supple. LUNGS: Slight rhonchi B/L HEART: Regular rate and rhythm, S1, S2 without murmur, rub or gallop. ABDOMEN: Soft, nontender, nondistended, normoactive bowel sounds, no guarding, no rebound, no hepatosplenomegaly, no masses. EXTREMITIES: 2+ pulses, warm, well-perfused, no edema. NEUROLOGICAL: Cranial nerves II through XII grossly intact. Normal speech, gait not observed. PSYCH: Normal mood, normal affect. SKIN: Warm, dry, normal turgor, no rashes or lesions noted LABS Laboratory Results - last 24 hr 02/20/19 02/20/19 02/20/19 14:05 16:21 22:05 WBC RBC Hgb Hct MCV MCH MCHC RDW Plt Count MPV Sodium Potassium Chloride Carbon Dioxide Anion Gap BUN Creatinine Est GFR (CKD-EPI)AfAm Est GFR (CKD-EPI)NonAf POC Glucometer 146 163 Random Glucose Calcium Urine WBC (Auto) 14.2 Urine RBC (Auto) 0.6 Urine Casts (Auto) 0.35 U Epithel Cells (Auto) 2.6 Urine Bacteria (Auto) 4246.8 02/21/19 02/21/19 02/21/19 06:23 07:30 07:30 WBC 7.4 RBC 3.60 Hgb 11.1 Hct 32.6 MCV 90.5 MCH 30.8 MCHC 34.0 RDW 13.4 Plt Count 178 MPV 9.2 Sodium 144 Potassium 4.2 Chloride 112 H Carbon Dioxide 25 Anion Gap 7 L BUN 16.8 Creatinine 0.8 Est GFR (CKD-EPI)AfAm 80.14 Est GFR (CKD-EPI)NonAf 69.14 POC Glucometer 106 Random Glucose 105 Calcium 8.9 Urine WBC (Auto) Urine RBC (Auto) Urine Casts (Auto) U Epithel Cells (Auto) Urine Bacteria (Auto) 02/21/19 11:52 WBC RBC Hgb Hct MCV MCH MCHC RDW Plt Count MPV Sodium Potassium Chloride Carbon Dioxide Anion Gap BUN Creatinine Est GFR (CKD-EPI)AfAm Est GFR (CKD-EPI)NonAf POC Glucometer 193 Random Glucose Calcium Urine WBC (Auto) Urine RBC (Auto) Urine Casts (Auto) U Epithel Cells (Auto) Urine Bacteria (Auto) HOSPITAL COURSE: Date of Admission:02/19/19 83 YO F with PMH significant for esophageal strictures (EGD balloon dilation & biopsy 02/10), HTN, DM, HLD, GERD. Presented to the ER with dysphagia to solids and liquids, associated with multiple episodes of vomitus consisting of saliva, which began after a meal. Date of Discharge: 02/21/19 EGD was performed the same night by Dr. Downs, without complications, and food debris removed. Erythematous Gastritis was also observed. Modified barium swallow was performed, and there was no evidence of aspiration. Topstitcher Zigzag Gaby Fernandez was consulted, and she recommended advancing patient from a clear liquid to puree diet with thin liquids, which the patient tolerated. CXR was performed to rule out aspiration, which was clear and showed no acute pathology. At D/C, she was asked to follow up with GI. Discharge Summary Reason For Visit: FOREIGN BODY IN ESOPHAGUS Condition: Improved - Instructions Diet, Activity, Other Instructions: You were admitted to the hospital because of difficulty swallowing. This was caused by some food debris stuck in your esophagus. While you were here, we performed a procedure called an EGD to remove the food debris. We also performed a scan called a Barium Swallow, which showed that you may have a stricture in your esophagus causing food to get stuck. We recommend you follow up with your GI doctor for further management. Your symptoms have improved and you are now being discharged home. Medications: - Please continue all your home meds as prescribed. Follow up: Please make the following appointments within one week: - With your PCP, Mayela Arevalo - With your GI doctor. If you do not have one, please follow up with Ilda Craig. Recommendations: We recommend eating a soft diet, with ground/chopped consistency. Please avoid the following foods: Tough meats, raw fruits and vegetables, chewy or crispy breads, nuts and seeds. You may eat foods such as: Soft-cooked or canned vegetables, soft raw fruits without skin, milk, milk drinks, yogurt, cheese, cottage cheese, ice cream, pudding, etc. We have provided a list for you with foods to eat/avoid. Additional Information: Please return to the Emergency Department if you have any of the following: Difficulty swallowing, fever, shortness of breath, loss of consciousness, nausea , dizziness, vomiting, diarrhea, bleeding that will not stop, or persistent headache. Referrals: Mayela Abrams [Primary Care Provider] - 1 Week Ilda Downs DO [Staff Physician] - 1 Week Disposition: HOME - Home Medications Comprehensive Discharge Medication List: Ambulatory Orders Aspirin 81 mg PO DAILY 02/20/19 Glipizide [Glipizide Xl] 2.5 mg PO AC 02/20/19 Metformin HCl [Glucophage] 1,000 mg PO BID 02/20/19 Omeprazole 20 mg PO DAILY 02/20/19 Ramipril 5 mg PO DAILY 02/20/19 Rosuvastatin [Crestor -] 20 mg PO DAILY 02/20/19 - Discharge Referral Referred to [facility] No ATTENDING PHYSICIAN STATEMENT I saw and evaluated the patient. I reviewed the resident's note and discussed the case with the resident. I agree with the resident's findings and plan as documented. SUBJECTIVE: OBJECTIVE: ASSESSMENT AND PLAN:
--- NOTE | 2019-02-21 15:54 | PN ---
Teaching Attending Note Name of Resident: Corona Beavers ATTENDING PHYSICIAN STATEMENT I saw and evaluated the patient. I reviewed the resident's note and discussed the case with the resident. I agree with the resident's findings and plan as documented. SUBJECTIVE: Patient doing well. Tolerating diet. OBJECTIVE: Vital Signs Period Temp Pulse Resp BP Sys/Sal Pulse Ox Last 24 Hr 97.3 F-98.1 F 63-83 18-19 111-153/55-73 98-98 HEART: S1S2, RRR LUNGS: Clear ABDOMEN: Soft, non-tender, non-distended, normal BS EXTREMITIES: No edema Laboratory Results - last 24 hr 02/20/19 02/20/19 02/20/19 14:05 16:21 22:05 WBC RBC Hgb Hct MCV MCH MCHC RDW Plt Count MPV Sodium Potassium Chloride Carbon Dioxide Anion Gap BUN Creatinine Est GFR (CKD-EPI)AfAm Est GFR (CKD-EPI)NonAf POC Glucometer 146 163 Random Glucose Calcium Urine WBC (Auto) 14.2 Urine RBC (Auto) 0.6 Urine Casts (Auto) 0.35 U Epithel Cells (Auto) 2.6 Urine Bacteria (Auto) 4246.8 02/21/19 02/21/19 02/21/19 06:23 07:30 07:30 WBC 7.4 RBC 3.60 Hgb 11.1 Hct 32.6 MCV 90.5 MCH 30.8 MCHC 34.0 RDW 13.4 Plt Count 178 MPV 9.2 Sodium 144 Potassium 4.2 Chloride 112 H Carbon Dioxide 25 Anion Gap 7 L BUN 16.8 Creatinine 0.8 Est GFR (CKD-EPI)AfAm 80.14 Est GFR (CKD-EPI)NonAf 69.14 POC Glucometer 106 Random Glucose 105 Calcium 8.9 Urine WBC (Auto) Urine RBC (Auto) Urine Casts (Auto) U Epithel Cells (Auto) Urine Bacteria (Auto) 02/21/19 11:52 WBC RBC Hgb Hct MCV MCH MCHC RDW Plt Count MPV Sodium Potassium Chloride Carbon Dioxide Anion Gap BUN Creatinine Est GFR (CKD-EPI)AfAm Est GFR (CKD-EPI)NonAf POC Glucometer 193 Random Glucose Calcium Urine WBC (Auto) Urine RBC (Auto) Urine Casts (Auto) U Epithel Cells (Auto) Urine Bacteria (Auto) Current Medications Generic Name Dose Route Start Last Admin Trade Name Freq PRN Reason Stop Dose Admin Aspirin 81 mg 02/20/19 16:30 02/21/19 11:20 Asa - PO 81 mg DAILY BILL Administration Fentanyl 50 mcg 02/19/19 22:56 Sublimaze Injection - IVPUSH [id number] PRN PAIN-PACU ORDER X 4 DOSES ONLY Heparin Sodium (Porcine) 5,000 unit 02/20/19 02:00 02/21/19 11:20 Heparin - SQ 5,000 unit Q8H-IV BILL Administration Insulin Aspart 0 vial 02/20/19 07:00 02/21/19 11:54 Novolog Vial Sliding Scale - SQ 2 units ACHS BILL Administration Protocol Ondansetron HCl 4 mg 02/19/19 22:56 Zofran Injection IVPUSH Q6H PRN NAUSEA AND/OR VOMITING Pantoprazole Sodium 40 mg 02/20/19 10:00 02/21/19 11:19 Protonix - PO 40 mg DAILY BILL Administration Promethazine HCl 12.5 mg 02/19/19 22:56 Phenergan Injection - IVPUSH Q6H PRN NAUSEA-FOR RESCUE AFTER 15 MIN Ramipril 5 mg 02/20/19 16:30 02/21/19 11:19 Altace - PO 5 mg DAILY BILL Administration Rosuvastatin Calcium 20 mg 02/20/19 22:00 02/20/19 21:20 Crestor - PO 20 mg HS BILL Administration ASSESSMENT AND PLAN: This is an 83 year old woman with a history of HTN, hyperlipidemia, type 2 DM, GERD, esophageal stricture with balloon dilation who presented to the ED with difficulty swallowing. 1. Food impaction secondary to esophageal stricture - EGD done, food debris removed from esophagus. Erythematous gastropathy found in stomach - Modified barium swallow shows no evidence of aspiration - Continue Protonix - Tolerating chopped diet 2. Leukocytosis - Likely reactive - Improved 3. Dehydration - Improved 4. HTN - Continue ramipril 5. Hyperlipidemia - Restart Crestor 6. Type 2 DM - Restart glipizide, metformin 7. Disposition - Ok for discharge home with outpatient GI follow-up
--- NOTE | 2019-02-21 16:10 | PN ---
Progress Note (short form) - Note Progress Note: patient discharged prior to being able to follow-up.
[2019-02-21 16:27] VITALS: BMI 29.2
== END 2019-02-21 15:30 | disposition home or self-care (01) | DRG 392 ==
LOC: JER 18:01 → JERBED 20:52 → J6S 02-20 01:47
PROVIDERS: ADMIT Internal Medicine; ATTEND Internal Medicine
PROC: 0DC38ZZ Extirpation of Matter from Lower Esophagus, Via Natural or Artificial Opening Endoscopic (ICD-10-PCS; 2019-02-19)
PROC: 0DC28ZZ Extirpation of Matter from Middle Esophagus, Via Natural or Artificial Opening Endoscopic (ICD-10-PCS; 2019-02-19)
PROC: 0DJ08ZZ Inspection of Upper Intestinal Tract, Via Natural or Artificial Opening Endoscopic (ICD-10-PCS; principal; 2019-02-19 23:00)
DX: K22.2 Esophageal obstruction (principal); T18.128A Food in esophagus causing other injury, initial encounter; I10 Essential (primary) hypertension; E86.0 Dehydration; D72.829 Elevated white blood cell count, unspecified; E78.5 Hyperlipidemia, unspecified; E11.9 Type 2 diabetes mellitus without complications; E66.9 Obesity, unspecified; Z68.29 Body mass index [BMI] 29.0-29.9, adult; K21.9 Gastro-esophageal reflux disease without esophagitis; E11.65 Type 2 diabetes mellitus with hyperglycemia; K29.70 Gastritis, unspecified, without bleeding; R11.10 Vomiting, unspecified; K31.9 Disease of stomach and duodenum, unspecified
CPT/HCPCS: 36415; 71045-TC-FY; 74230-TC-FY; 80048; 80053; 81003; 82962; 85025; 85027; 85610; 86850; 86900; 86901; 88302-TC; 92611-GN; 93005; 93010; 94010; 94760; 99284-25; J1644